=== PATIENT | male | born 1975 | race Caucasian/White ===

== ENCOUNTER 2018-08-30 22:05 | Emergency (ER) | payer SELFPAY ==
[~2018-08-30] VITALS: Ht 188 cm; Wt 65.8 kg
--- NOTE | 2018-08-30 22:31 | PHYS DOC ---
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 Patient states he is semi-homeless. He states he broke up with his and has been living in the car, he states he was living in his care which went out and currently he does not have a place to stay. He states this morning he was at [facility], he states he had to inform [facility] he has suicidal to receive care otherwise they will not take care of him. He states they sent him to [facility]-he states he went to [facility] but somebody at [facility] is not communicating with his insurance, he states he did not have a place to go after living [facility], he states his been walking all day , he states he could not get a cab to go to [facility] or [employer] either where he states he orders a meal and drinks coffee for 5 hours. He states he has been drinking today. He states his drank as much as half a pint of hard liquor. He states his blood sugars have been running in the 300s today, he states this is not the usual number for him, he states he has not used his insulin either. Patient also states he Suboxone for chronic pain. He is currently denies any suicidal or homicidal ideations. Review of Systems Review of Systems Constitutional: Denies fever or chills [] Eyes: Denies change in visual acuity, redness, or eye pain [] HENT: Denies nasal congestion or sore throat [] Respiratory: Denies cough or shortness of breath [] Cardiovascular: No additional information not addressed in HPI [] GI: Denies abdominal pain, nausea, vomiting, bloody stools or diarrhea [] : Denies dysuria or hematuria [] Musculoskeletal: Reports chronic bilateral lower extremity pain from diabetes neuropathy Integument: Denies rash or skin lesions [] Neurologic: Denies headache, focal weakness or sensory changes [] Endocrine: Reports hyperglycemia Psych: Reports homelessness, alcohol intoxication All other systems were reviewed and found to be within normal limits, except as documented in this note. Current Medications Current Medications Current Medications Medications (Trade) Dose Ordered Sig/John Start Time Stop Time Status Last Admin Dose Admin Insulin Human Regular (HumuLIN R VIAL) 8 unit 1X ONCE 08/30/18 23:30 08/30/18 23:31 DC 08/30/18 23:27 8 UNIT Ketorolac Tromethamine (Toradol 30mg Vial) 30 mg 1X ONCE 08/30/18 23:00 08/30/18 23:01 DC 08/30/18 22:44 30 MG Multivitamins 10 ml/Thiamine HCl 100 mg/Folic Acid 1 mg/Sodium Chloride 1,011.2 ml @ 1,000.088 mls/hr 1X ONCE 08/30/18 23:00 08/31/18 00:00 DC 08/30/18 22:44 1,000.088 MLS/HR Allergies Allergies Allergies Coded Allergies Type Severity Reaction Last Updated Verified sulfamethoxazole Allergy Intermediate 08/30/18 Yes trimethoprim Allergy Intermediate 08/30/18 Yes Physical Exam Physical Exam Constitutional: Well developed, well nourished, no acute distress, non-toxic appearance. [] HENT: Normocephalic, atraumatic, bilateral external ears normal, oropharynx moist, no oral exudates, nose normal. [] Eyes: PERRLA, EOMI, conjunctiva normal, no discharge. [] Neck: Normal range of motion, no tenderness, supple, no stridor. [] Cardiovascular:Heart rate regular rhythm, no murmur [] Lungs & Thorax: Bilateral breath sounds clear to auscultation [] Abdomen: Bowel sounds normal, soft, no tenderness, no masses, no pulsatile masses. [] Skin: Warm, dry, no erythema, no rash. [] Back: No tenderness, no CVA tenderness. [] Extremities: No tenderness, no cyanosis, no clubbing, ROM intact, +1 bilateral LE edema worse on the left-Patient states it is chronic Neurologic: Alert and oriented X 3, normal motor function, normal sensory function, no focal deficits noted. [] Psychologic: Appears depressed, and drunk Current Patient Data Vital Signs Vital Signs Date Time Temp Pulse Resp B/P (MAP) Pulse Ox O2 Delivery O2 Flow Rate FiO2 08/30/18 22:23 98.0 113 20 116/81 (93) 99 Room Air 98.0 Lab Values Laboratory Tests Test 08/30/18 22:40 08/30/18 23:35 08/31/18 00:08 White Blood Count 4.6 x10^3/uL (4.0-11.0) Red Blood Count 3.54 x10^6/uL (4.30-5.70) L Hemoglobin 9.8 g/dL (13.0-17.5) L Hematocrit 30.1 % (39.0-53.0) L Mean Corpuscular Volume 85 fL (79-100) Mean Corpuscular Hemoglobin 28 pg (25-35) Mean Corpuscular Hemoglobin Concent 33 g/dL (31-37) Red Cell Distribution Width 17.2 % (11.5-14.5) H Platelet Count 350 x10^3/uL (140-400) Neutrophils (%) (Auto) 46 % (31-73) Lymphocytes (%) (Auto) 42 % (24-48) Monocytes (%) (Auto) 11 % (0-9) H Eosinophils (%) (Auto) 1 % (0-3) Basophils (%) (Auto) 1 % (0-3) Neutrophils # (Auto) 2.1 x10^3uL (1.8-7.7) Lymphocytes # (Auto) 1.9 x10^3/uL (1.0-4.8) Monocytes # (Auto) 0.5 x10^3/uL (0.0-1.1) Eosinophils # (Auto) 0.0 x10^3/uL (0.0-0.7) Basophils # (Auto) 0.0 x10^3/uL (0.0-0.2) Sodium Level 139 mmol/L (136-145) Potassium Level 3.8 mmol/L (3.5-5.1) Chloride Level 100 mmol/L (98-107) Carbon Dioxide Level 27 mmol/L (21-32) Anion Gap 12 (6-14) Blood Urea Nitrogen 8 mg/dL (8-26) Creatinine 0.6 mg/dL (0.7-1.3) L Estimated GFR (Cockcroft-Gault) 147.0 BUN/Creatinine Ratio 13 (6-20) Glucose Level 365 mg/dL (70-99) H Calcium Level 8.6 mg/dL (8.5-10.1) Total Bilirubin 0.2 mg/dL (0.2-1.0) Aspartate Amino Transferase (AST) 12 U/L (15-37) L Alanine Aminotransferase (ALT) 13 U/L (16-63) L Alkaline Phosphatase 83 U/L (46-116) Total Protein 7.3 g/dL (6.4-8.2) Albumin 2.6 g/dL (3.4-5.0) L Albumin/Globulin Ratio 0.6 (1.0-1.7) L Lipase 28 U/L (73-393) L Salicylates Level < 2.8 mg/dL (2.8-20.0) L Salicylate Last Dose Date Salicylate Last Dose Time Acetaminophen Level < 2 mcg/ml (10-30) L Acetaminophen Last Dose Date Acetaminophen Last Dose Time Ethyl Alcohol Level 93 mg/dL (0-10) H Urine Collection Type Unknown Urine Color Yellow Urine Clarity Clear Urine pH 6.0 Urine Specific [place]don 1.025 Urine Protein Negative mg/dL (NEG-TRACE) Urine Glucose (UA) >=1000 mg/dL (NEG) Urine Ketones (Stick) Negative mg/dL (NEG) Urine Blood Negative (NEG) Urine Nitrite Negative (NEG) Urine Bilirubin Negative (NEG) Urine Urobilinogen Dipstick 0.2 mg/dL (0.2 mg/dL) Urine Leukocyte Esterase Negative (NEG) Urine RBC 0 /HPF (0-2) Urine WBC 0 /HPF (0-4) Urine Bacteria 0 /HPF (0-FEW) Urine Opiates Screen Neg (NEG) Urine Methadone Screen Neg (NEG) Urine Barbiturates Neg (NEG) Urine Phencyclidine Screen Neg (NEG) Urine Amphetamine/Methamphetamine Neg (NEG) Urine Benzodiazepines Screen Neg (NEG) Urine Cocaine Screen Pos (NEG) Urine Cannabinoids Screen Neg (NEG) Urine Ethyl Alcohol Pos (NEG) Glucose (Fingerstick) 257 mg/dL (70-99) H Laboratory Tests 08/30/18 22:40 Laboratory Tests 08/30/18 22:40 EKG EKG [] Radiology/Procedures Radiology/Procedures [] Course & Med Decision Making Course & Med Decision Making Pertinent Labs and Imaging studies reviewed. (See chart for details) This is a 42-year-old patient presenting to the ED today with multiple complaints, see history of present illness. Patient is currently homeless, drunk , and complaining of bilateral lower extremity pain, he states is supposed to go to [facility] today but there is a miscommunication between [facility] and his insurance. See history of present illness for further information. Denies any suicidal or homicidal ideation though he states that can change and go either way "depending ". He states when he told [facility] he is not suicidal they sent him home. PAT team was notified. Charla came to the ED. she states patient does not qualify for RSI and other centers will not accept him because they state he has a homeless situation not needing RSI or Rehab services. States he also states after calling several services details of this patient was seen at [facility], they sent him to [facility] then he went to [facility] who sent him to [facility] and then came to [facility]. States he states patient himself states he'll be going to [facility] or [facility] after discharge. CBC with normal WBC, hemoglobin 9.8, hematocrit 30.1, RDW 17.2 no rectal bleeding no abdominal pain likely chronic anemia. CMP with glucose of 256, anion gap is normal. Urine has no ketones. Patient was given a banana bag and 8 units of insulin. Drug screen noted for alcohol, cocaine, alcohol level of 93. Blood glucose 257. I talked to patient about his discharge plan, he is refusing to call the homeless penitentiary. He will be discharged to whatever address he chooses [employer] Disclaimer Dragon Disclaimer This electronic medical record was generated, in whole or in part, using a voice recognition dictation system. Departure Departure Impression: Primary Impression: ETOH abuse Additional Impressions: Diabetes mellitus with neuropathy Homeless Hyperglycemia Disposition: 01 HOME, SELF-CARE Condition: STABLE Patient Instructions: Alcohol Intoxication, Hyperglycemia, [id number] Additional Instructions: You were evaluated in the emergency room for hyperglycemia, alcohol use, homelessness. We highly encouraged you to contact a homeless penitentiary for accomodation. Problem Qualifiers Additional Impressions: Diabetes mellitus with neuropathy Diabetes mellitus type: type 1 Qualified Codes: E10.40 - Type 1 diabetes mellitus with diabetic neuropathy, unspecified JANIEADONAY REILLY Aug 30, 2018 22:31
[2018-08-30 22:44] LABS: BASO % 1 % (0-3); EOS % 1 % (0-3); HEMATOCRIT 30.1 % (39.0-53.0); HEMOGLOBIN 9.8 g/dL (13.0-17.5); LYMPH # 1.9 x10^3/uL (1.0-4.8); LYMPH % 42 % (24-48); MEAN CORPUSCULAR HEMOGLOBIN 28 pg (25-35); MEAN CORPUSCULAR HGB CONC 33 g/dL (31-37); MEAN CORPUSCULAR VOLUME 85 fL (79-100); MONO # 0.5 x10^3/uL (0.0-1.1); MONO % 11 % (0-9); NEUT # 2.1 x10^3uL (1.8-7.7); NEUT % 46 % (31-73); PLATELET COUNT 350 x10^3/uL (140-400); RED BLOOD COUNT 3.54 x10^6/uL (4.30-5.70); RED CELL DISTRIBUTION WIDTH 17.2 % (11.5-14.5); WHITE BLOOD COUNT 4.6 x10^3/uL (4.0-11.0)
[2018-08-30 22:52] LABS: CALCIUM 8.6 mg/dL (8.5-10.1); CREATININE 0.6 mg/dL (0.7-1.3); POTASSIUM 3.8 mmol/L (3.5-5.1)
[2018-08-30 22:56] LABS: ACETAMIN < 2 mcg/ml (10-30); ETHANOL 93 mg/dL (0-10); SALIC < 2.8 mg/dL (2.8-20.0)
[2018-08-30 22:58] LABS: ALBUMIN 2.6 g/dL (3.4-5.0); ALBUMIN/GLOBULIN RATIO 0.6 (1.0-1.7); TOTAL BILIRUBIN 0.2 mg/dL (0.2-1.0); TOTAL PROTEIN 7.3 g/dL (6.4-8.2)
[2018-08-30] MEDS ORDERED: KETOROLAC 30 MG/ML VIAL. IV ONE (23:00)
[2018-08-30] MEDS ORDERED: MULTIVIT INFUSN,ADULT 4,VIT K 10 ML, THIAMINE INJ 100 MG, FOLIC ACID INJ 1 MG in IV NOR... IV ONE (23:00)
[2018-08-30] MEDS ORDERED: INSULIN REGULAR 100 UNIT/ML 3ML VIAL. IV ONE (23:30)
[2018-08-31 00:02] LABS: BILIRUBIN,URINE NEGATIVE (NEG); CLARITY,URINE CLEAR; COLOR,URINE YELLOW; NITRITE,URINE NEGATIVE (NEG); PROTEIN,URINE NEGATIVE (NEG-TRACE); UROBILINOGEN,URINE 0.2 mg/dL (0.2 mg/dL)
[2018-08-31 00:03] LABS: BACTERIA,URINE 0 /HPF (0-FEW); RBC,URINE 0 /HPF (0-2); WBC,URINE 0 /HPF (0-4)
[2018-08-31 00:06] LABS: BARBITURATES NEG (NEG); BENZODIAZEPINES NEG (NEG); CANNABINOIDS NEG (NEG); COCAINE POS (NEG); METHADONE NEG (NEG); OPIATES NEG (NEG); PHENCYCLIDINE NEG (NEG)
[2018-08-31 00:10] LABS: AMPHETAMINE/METHAMPHETAMINE NEG (NEG)
[2018-08-31 00:46] VITALS: BP 101/60
== END 2018-08-31 00:56 | disposition home or self-care (01) ==
LOC: ER 22:05
DX: E10.40 Type 1 diabetes mellitus with diabetic neuropathy, unspecified (principal); E10.65 Type 1 diabetes mellitus with hyperglycemia; M79.605 Pain in left leg; M79.604 Pain in right leg; F10.129 Alcohol abuse with intoxication, unspecified; Y90.4 Blood alcohol level of 80-99 mg/100 ml; G89.29 Other chronic pain; Z59.0 Homelessness; Z88.1 Allergy status to other antibiotic agents; Z88.2 Allergy status to sulfonamides
CPT/HCPCS: 36415; 80053; 80307; 80329; 81001; 82962; 83690; 85025; 96365; 96375; 99283; G0480; G6039; J1815; J1885; J7030